=== PATIENT | male | born 1965 | race Caucasian/White ===

== ENCOUNTER 2016-09-27 14:21 | Emergency (ER) | payer MEDICARE, OTHER ==
[2016-09-27] MEDS ORDERED: 0.9 % SODIUM CHLORIDE 1,000 ML IV ONE ×2 (14:43→15:18)
--- NOTE | 2016-09-27 15:03 | ED Physician Documentation ---
General Adult - HISTORIAN Historian: patient, friend - [facility] Chief Complaint: General Adult Additional Information: n/e/.d flu l;girish symptoms-no flu shot Onset: days ago (6-7) Timing: worse, other (thinks dehydrated-dec ua output prev diarrhea normal brown formed stool this am) Severity: moderate - ROS CONST: recent illness, weakness EYES/ENT: none CVS/RESP: none GI/: vomiting, nausea (nausea better w/ sl zofran), diarrhea MS/SKIN/LYMPH: none NEURO/PSYCH: dizziness - PAST HX Past History: other (lo thryoid depression ch back pain-pump demerol htn) Immunizations: denies: influenza, pneumovax Allergies/Adverse Reactions: Allergies Allergy/AdvReac Type Severity Reaction Status Date / Time Penicillins Allergy Verified 09/27/16 14:50 pregabalin [From Lyrica] Allergy Verified 09/27/16 14:50 Sulfa (Sulfonamide Allergy Verified 09/27/16 14:50 Antibiotics) - SOCIAL HX Smoking History: greater than 1 pack/day Alcohol Use: none Drug Use: marijuana - FAMILY HX Family History: No - REVIEWED ASSESSMENTS Nursing Assessment Reviewed: Yes Vitals Reviewed: Yes ED Results Lab/Radiology - Orders Orders: ED Orders Category Date Time Status AMYLASE Routine Lab 09/27/16 Ordered CBC/PLATELET/DIFF Routine Lab 09/27/16 Ordered CMP Routine Lab 09/27/16 Ordered INFLUENZA A&B Routine Lab 09/27/16 Uncollected URINALYSIS Routine Lab 09/27/16 Ordered 0.9 % Sodium Chloride [Normal Saline] 1,000 ml Med 09/27/16 14:43 Discontinued IV .STK-MED EKG WITH COMPARISON Stat Ther 09/27/16 Ordered General Adult Physical Exam - PHYSICAL EXAM GENERAL APPEARANCE: mild distress EENT: eye inspection normal NECK: normal inspection, thyroid normal. No: lymphadenopathy RESPIRATORY: no resp distress, chest non-tender, breath sounds normal CVS: reg rate & rhythm, heart sounds normal ABDOMEN: soft, tenderness (generalized) BACK: normal inspection SKIN: warm/dry, normal color. No: cyanosis, diaphoresis, jaundice EXTREMITIES: non-tender, normal range of motion, no evidence of injury NEURO: oriented X3, motor nml, sensation nml, mood/affect nml Discharge Clincal Impression: Influenza A, Dehydration Condition: Good Disposition: 01 HOME, SELF-CARE Decision to Admit: NO Decision Time: 16:57
[2016-09-27 15:10] LABS: BASOPHILS % 0.3 (0.0-1.5); EOSINOPHILS % 2.5 % (0.0-6.8); LYMPHOCYTES # 2.2 # k/uL (0.6-4.0); MEAN CORPUSCULAR HEMOGLOBIN 26.5 pg (28.0-34.0); MONOCYTES # 0.4 # k/uL (0.0-0.9); MONOCYTES % 4.5 % (0.0-11.0); NEUTROPHILS # 5.6 # k/uL (1.4-7.7)
[2016-09-27 15:19] LABS: eGFR (African) > 60; eGFR (Non-African) > 60
[2016-09-27] MEDS ORDERED: 0.9 % SODIUM CHLORIDE 1,000 ML IV SCH ×2 (16:30→17:00)
[2016-09-27 17:13] VITALS: BP 197/94
== END 2016-09-27 17:05 | disposition home or self-care (01) ==
LOC: ED 14:21
DX: J11.1 Influenza due to unidentified influenza virus with other respiratory manifestations (principal); E86.0 Dehydration
CPT/HCPCS: 80053; 82150; 85025; 87400; 93005; J7030; 96360; 99284; S1016